=== PATIENT | female | born 1985 | race Two or more races ===

== ENCOUNTER 2022-04-25 15:57 | Emergency (ER) | payer MEDICAID, SELFPAY ==
[2022-04-25 16:01] VITALS: BP 130/74; PULSE 80; RESP 18; TEMP 36.8; O2SAT 99; BMI 33.0
--- NOTE | 2022-04-25 16:15 | USR_ITS ---
PROCEDURE INFORMATION: Exam: US Pelvis, Transvaginal Exam date and time: 04/25/2022 4:55 PM Age: 37 years old Clinical indication: Other: Vaginal bleeding; Patient HX: Patient has a positive test 6542.00. No iup visualized. ; Additional info: Approximately 6 weeks with bleeding TECHNIQUE: Imaging protocol: Real-time transvaginal pelvic ultrasound with image documentation. Transvaginal imaging was used for better evaluation of the endometrium, adnexa, and/or cervix. COMPARISON: No relevant prior studies available. FINDINGS: Uterus: See below. Right ovary/adnexa: Normal. No mass. Normal ovarian blood flow. Left ovary/adnexa: Normal. No mass. Normal ovarian blood flow. Gestation: Negative for intrauterine , patient remains at risk for ectopic , close clinical correlation, serial beta HCG levels and follow-up ultrasound as clinically indicated advised. Small amount of nonspecific fluid in the uterine cavity, largely in the lower uterine segment, an abnormal is also a consideration for this appearance. Intraperitoneal space: Trace nonspecific fluid in the pelvis. US/US transvaginal [id number] IMPRESSION: 1. Negative for intrauterine , patient remains at risk for ectopic , close clinical correlation, serial beta HCG levels and follow-up ultrasound as clinically indicated advised. 2. Small amount of nonspecific fluid in the uterine cavity, largely in the lower uterine segment, an abnormal is also a consideration for this appearance. 3. Trace nonspecific fluid in the pelvis.
--- NOTE | 2022-04-25 16:25 | W.ED.PREGNAN ---
Documented by User: [email or web address] Rushing 04/26/22 07:09 HPI - General: Chief complaint: Vaginal Bleeding Stated complaint: vaginal bleeding Time Seen by Provider: 04/25/22 16:11 History of Present Illness: Patient is a a G2, P1 8-week 37-year-old female who comes to the ED with vaginal bleeding. Last menstrual period was February 26, 2022 and according to last menstrual period she is 8 weeks . Last week patient had some light spotting and went and saw her OB provider and they did an ultrasound and showed a intrauterine measuring at about 5 weeks gestation. Over the past week patient's vaginal bleeding has been increasing. Bleeding is still on the light to moderate side and describes it as less bleeding than her normal period bleeding. Endorses having episodic cramping as well. Patient is unsure of Rh status. Denies any fever, chills, nausea/vomiting, bladder or bowel symptoms. Date of Last Menstrual Period: 02/26/22 Associated symptoms: Deny abdominal pain, dysuria, headache(s), nausea or vomiting Review of Systems Const: Denies: fever(s), chills or fatigue Eyes: Denies: change in vision or eye discomfort ENMT: Denies: throat pain, odynophagia, nasal discharge or nasal congestion Card: Denies: chest pain, palpitations, edema, swelling of feet/ankles, dyspnea on exertion or orthopnea Resp: Denies: dyspnea, productive cough or non-productive cough GI: Denies: abdominal pain, nausea, vomiting, diarrhea, constipation, GI cramping or hematochezia : Reports: vaginal bleeding and other (cramping); Denies: flank pain, dysuria or hematuria Musc: Denies: neck pain, back pain or extremity swelling Skin/Breast: Denies: rash or new lesions Neuro: Denies: headache(s), numbness in extremities or weakness in extremities PFSH ED PFSH: Medical History No pertinent family history Surgical History No pertinent past surgical history Female Reproductive History: Date of last menstrual period: 02/26/22 Physical Exam Const: COMMON NORMALS: patient oriented x3 and alert GENERAL APPEARANCE: cooperative and comfortable HENMT: COMMON NORMALS: normocephalic HEAD & SCALP: normocephalic MOUTH: Normal oral and palatal mucosa present THROAT: posterior oropharynx normal and uvula midline Neck/C-Spine: COMMON NORMALS: supple GENERAL: Yes normal visual inspection Resp: COMMON NORMALS: normal respiratory effort, No retractions, No use of accessory muscles and clear to auscultation bilaterally AUSCULTATION: clear to auscultation bilaterally Cardio: COMMON NORMALS: regular rate, regular rhythm, S1 normal heart sound present, S2 normal heart sound present, No gallops present (Cardio), No clicks present (Cardio), No murmurs present (Cardio) and Peripheral pulses 2+ throughout RATE: regular rate RHYTHM: regular rhythm HEART SOUNDS: S1 normal heart sound present and S2 normal heart sound present PERIPHERAL PULSES: Peripheral pulses 2+ throughout GI: COMMON NORMALS: Normal to inspection, nondistended, normoactive bowel sounds present, Soft to palpation, non-tender and no masses PALPATION: Yes Soft to palpation : COMMON NORMALS: Yes no CVA tenderness BLADDER/KIDNEY EXAM: Yes no CVA tenderness Back/Pelvis: COMMON NORMALS: no CVA tenderness Extremity: COMMON NORMALS: normal to inspection Neuro: COMMON NORMALS: patient oriented x3 SENSORIUM/ORIENTATION: Yes alert GAIT: Yes Normal gait present Skin: GENERAL SKIN EXAM: dry skin Course Vital Signs: Vital signs: Vital Signs Temperature 97.9 F 04/25/22 18:48 Pulse Rate 89 04/25/22 18:48 Respiratory Rate 15 04/25/22 18:48 Blood Pressure 132/72 04/25/22 18:48 Pulse Oximetry 96 04/25/22 18:48 Oxygen Delivery Me thod 04/25/22 16:01 MDM - OB/Uterine Contractions Medical Decision Making Patient comes in today for increased bleeding during first trimester . Patient was seen last week and it was noted that she had a intrauterine on ultrasound. 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 On exam abdomen soft nontender. Vital signs are normal. Differential diagnosis includes spontaneous miscarriage, threatened , UTI. Laboratory values noted blood in the urine, a low hemoglobin at 7.3, normal CMP. Ultrasound noted no intrauterine . hCG is 6000. Suspect loss of recommend repeat hCG in 3 days with follow-up with either primary care or PRO[employer] DIRECTOR [employer]. Patient reported understanding and agreed to plan. Lab Data I reviewed the patient's lab results. : 04/25/22 16:40 04/25/22 16:40 Radiology Impressions Transvaginal US 04/25/22 16:15 IMPRESSION: 1. Negative for intrauterine , patient remains at risk for ectopic , close clinical correlation, serial beta HCG levels and follow-up ultrasound as clinically indicated advised. 2. Small amount of nonspecific fluid in the uterine cavity, largely in the lower uterine segment, an abnormal is also a consideration for this appearance. 3. Trace nonspecific fluid in the pelvis. Laboratory Results WBC 7.5 10^3/uL (4.0-10.0) 04/25/22 16:40 RBC 4.33 10^6/uL (4.1-5.3) 04/25/22 16:40 Hgb 7.3 g/dL (11.5-15.3) L 04/25/22 16:40 Hct 28.7 % (37.0-47.0) L 04/25/22 16:40 MCV 66.3 fl (81-99) L 04/25/22 16:40 MCH 16.9 pg (28.0-34.0) L 04/25/22 16:40 MCHC 25.4 g/dL (30.0-36.0) L 04/25/22 16:40 RDW 24.2 % (12.1-15.1) H 04/25/22 16:40 Plt Count 244 10^3/cmm (130-400) 04/25/22 16:40 MPV 10.8 fL (7.4-10.4) H 04/25/22 16:40 Neut % (Auto) 78.4 % 04/25/22 16:40 Lymph % (Auto) 16.2 % 04/25/22 16:40 [place] % (Auto) 3.7 % 04/25/22 16:40 Eos % (Auto) 0.9 % 04/25/22 16:40 Baso % (Auto) 0.5 % 04/25/22 16:40 Neut # (Auto) 5.85 10^3/uL (1.8-7.7) 04/25/22 16:40 Lymph # (Auto) 1.2 10^3/uL (0.8-4.8) 04/25/22 16:40 [place] # (Auto) 0.3 10^3/uL (0.2-0.9) 04/25/22 16:40 Eos # (Auto) 0.1 10^3/uL (0.0-0.8) 04/25/22 16:40 Baso # (Auto) 0.0 10^3/uL (0.0-0.1) 04/25/22 16:40 Nucleated RBC % (auto) 0 % 04/25/22 16:40 Nucleated RBCs # 0.0 /100WBC 04/25/22 16:40 Sodium 140 mmol/L (136-145) 04/25/22 16:40 Potassium 3.6 mmol/L (3.5-5.1) 04/25/22 16:40 Chloride 106 mmol/L (98-107) 04/25/22 16:40 Carbon Dioxide 23 mmol/L (22-29) 04/25/22 16:40 Anion Gap 14.6 (5-19) 04/25/22 16:40 BUN 11 mg/dL (6-20) 04/25/22 16:40 Creatinine 0.6 mg/dL (0.5-0.9) 04/25/22 16:40 GFR Calculation 112.5 mL/min (90-130) 04/25/22 16:40 Glucose 99 mg/dL (65-115) 04/25/22 16:40 Calculated Osmolality 289 mOsm/kg (285-295) 04/25/22 16:40 Calcium 9.0 mg/dL (8.5-10.5) 04/25/22 16:40 Total Bilirubin 0.6 mg/dL (0.15-1.2) 04/25/22 16:40 AST 14 U/L (0-32) 04/25/22 16:40 ALT 12 U/L (0-33) 04/25/22 16:40 Alkaline Phosphatase 65 U/L (35-105) 04/25/22 16:40 Total Protein 7.8 g/dL (6.6-8.7) 04/25/22 16:40 Albumin 4.3 g/dL (3.5-5.2) 04/25/22 16:40 Globulin 3.5 g/dL (1.3-4.6) 04/25/22 16:40 Lipase 24 U/L (13-60) 04/25/22 16:40 Ser , Semi-Qnt 6542.00 mIU/mL 04/25/22 16:40 Urine Color Yellow (Yellow) 04/25/22 16:50 Urine Appearance Clear (CLEAR) 04/25/22 16:50 Urine pH 5 (5-7) 04/25/22 16:50 Ur Specific [place] 1.020 (1.005-1.030) 04/25/22 16:50 Urine Protein Neg (Negative) 04/25/22 16:50 Urine Glucose (UA) Norm (Normal) 04/25/22 16:50 Urine Ketones Negative (Negative) 04/25/22 16:50 Urine Blood 3+ (Negative) H 04/25/22 16:50 Urine Nitrate Negative (Negative) 04/25/22 16:50 Urine Bilirubin Neg (Negative) 04/25/22 16:50 Urine Urobilinogen Norm mg/dL (Negative) 04/25/22 16:50 Ur Leukocyte Esterase Negative (Negative) 04/25/22 16:50 Urine RBC 15-25 /hpf (0-2) H 04/25/22 16:50 Urine WBC 0-4 /hpf (0-5) H 04/25/22 16:50 Ur Squamous Epith Cells 0-4 /hpf (0-5) H 04/25/22 16:50 Amorphous Sediment Not Reportable 04/25/22 16:50 Urine Bacteria 2+ /hpf (NONE) H 04/25/22 16:50 Blood Type O Positive 04/25/22 16:46 Rho(D) Type Positive 04/25/22 16:46 Discharge Plan Discharge Patient Disposition: Home Clinical Impression: Threatened Condition: Stable Prescriptions: No Action ferrous sulfate 325 mg (65 mg iron) Tablet 325 mg PO BID 28 mg iron- 800 mcg Tablet 1 tab PO DAILY Discharge Orders: Discharge ED (Routine); Ordered 04/25/22 Ordered By: Hugh Abdi Discharge Diet: Usual diet Discharge Activity: Increase activity as tolerated Patient Instructions: Miscarriage (ED) Activity Restrictions/Additional Instructions: Home and rest. Drink plenty of fluids. Follow-up with primary care or [facility]ING in 2 to 3 days for repeat labs. Return to emergency department for fever greater than 100.4, bleeding greater than 1 pad an hour or new concerns. Sign Out Sign Out Data: Patient Sign Out occurred on 04/25/22 at 17:07. Patient's care was discussed, and care was transferred from to Hugh Abdi. Coding Level of Care Code ED [employer] Consultant for Chg Fwd Exam Comprehensive Documented by User: [email or web address] Fernandez 04/25/22 18:19 HPI - General: Chief complaint: Vaginal Bleeding Stated complaint: vaginal bleeding Time Seen by Provider: 04/25/22 16:11 PFSH ED PFSH: Medical History No pertinent family history Surgical History No pertinent past surgical history Course Vital Signs: Vital signs: Vital Signs Temperature 97.9 F 04/25/22 18:48 Pulse Rate 89 04/25/22 18:48 Respiratory Rate 15 04/25/22 18:48 Blood Pressure 132/72 04/25/22 18:48 Pulse Oximetry 96 04/25/22 18:48 Oxygen Delivery Me thod 04/25/22 16:01 MDM - OB/Uterine Contractions Medical Decision Making Patient comes in today for increased bleeding during first trimester . Patient was seen last week and it was noted that she had a intrauterine on ultrasound. 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 But still is present. On exam abdomen soft nontender. Vital signs are normal. Differential diagnosis includes spontaneous miscarriage, threatened , UTI. Laboratory values noted blood in the urine, a low hemoglobin at 7.3, normal CMP. Ultrasound noted no intrauterine . hCG is 6000. Suspect loss of recommend repeat hCG in 3 days with follow-up with either primary care or [facility] [employer]. Patient reported understanding and agreed to plan. Lab Data : 04/25/22 16:40 04/25/22 16:40 Radiology Impressions Transvaginal US 04/25/22 16:15
[2022-04-25 16:58] LABS: Basophils % 0.5 %; Eosinophils # 0.1 10^3/uL (0.0-0.8); Eosinophils % 0.9 %; Hematocrit 28.7 % (37.0-47.0); Hemoglobin 7.3 g/dL (11.5-15.3); Lymphocytes # 1.2 10^3/uL (0.8-4.8); Lymphocytes % 16.2 %; Mean Corpuscular HGB Conc 25.4 g/dL (30.0-36.0); Mean Corpuscular Hemoglobin 16.9 pg (28.0-34.0); Mean Corpuscular Volume 66.3 fl (81-99); Mean Platelet Volume 10.8 fL (7.4-10.4); Monocytes # 0.3 10^3/uL (0.2-0.9); Monocytes % 3.7 %; Neutrophils # 5.85 10^3/uL (1.8-7.7); Neutrophils % 78.4 %; Nucleated Red Blood Cells % 0 %; Platelet Count 244 10^3/cmm (130-400); Red Blood Count 4.33 10^6/uL (4.1-5.3); Red Cell Distribution Width 24.2 % (12.1-15.1); White Blood Count 7.5 10^3/uL (4.0-10.0)
[2022-04-25 17:39] LABS: Alanine Aminotransferase 12 U/L (0-33); Albumin Level 4.3 g/dL (3.5-5.2); Alkaline Phosphatase 65 U/L (35-105); Anion Gap 14.6 (5-19); Aspartate Amino Transferase 14 U/L (0-32); Blood Urea Nitrogen 11 mg/dL (6-20); Carbon Dioxide 23 mmol/L (22-29); Chloride 106 mmol/L (98-107); Globulin 3.5 g/dL (1.3-4.6); Glomerular Filtration Rate 112.5 mL/min (90-130); Glucose 99 mg/dL (65-115); Lipase 24 U/L (13-60); Osmolality Calculated 289 mOsm/kg (285-295); Potassium 3.6 mmol/L (3.5-5.1); Sodium 140 mmol/L (136-145); Total Bilirubin 0.6 mg/dL (0.15-1.2); Total Protein 7.8 g/dL (6.6-8.7)
[2022-04-25 17:40] LABS: Add Urine Microscopic? YES; Bilirubin Urine Neg (Negative); Blood Urine 3+ (Negative); Glucose Urine UA Norm (Normal); Ketones Urine Negative (Negative); Leukocyte Esterase Urine Negative (Negative); Nitrate Urine Negative (Negative); Protein Urine Neg (Negative); Urine Appearance Clear (CLEAR); Urine Color Yellow (Yellow); Urobilinogen Urine Norm (Negative); pH Urine 5 (5-7)
[2022-04-25 17:41] LABS: Add Urine Culture? Yes; Bacteria Urine 2+ /hpf; RBC Urine 15-25 /hpf (0-2); Squamous Epithelial Cell Urine 0-4 /hpf (0-5); WBC Urine 0-4 /hpf (0-5)
[2022-04-25 18:48] VITALS: BP 132/72; PULSE 89; RESP 15; TEMP 36.6; O2SAT 96
== END 2022-04-25 18:49 | disposition home or self-care (01) ==
PROVIDERS: Physician Assistant; Emergency Provider Nurse Practitioner Family
DX: O20.0 Threatened abortion (principal); Z3A.00 Weeks of gestation of pregnancy not specified
CPT/HCPCS: 76830; 80053; 81001; 83690; 84702; 85025; 86900; 87077; 87086; 87186; 99284

== ENCOUNTER 2022-12-29 17:26 | Outpatient (CLI) | payer BC, MEDICAID, SELFPAY | END 2022-12-29 17:27 | disposition home or self-care (01) | LOC: LAB 17:30 | PROVIDERS: PCP Family Medicine; Visit Provider Nurse Practitioner Family | DX: N93.9 Abnormal uterine and vaginal bleeding, unspecified (principal) | CPT/HCPCS: 84702 ==

== ENCOUNTER 2023-07-01 07:00 | Outpatient (CLI) | payer BC, MEDICAID, SELFPAY ==
[2023-07-01 07:21] VITALS: BP 146/85; PULSE 102
[2023-07-01 07:36] VITALS: BP 145/87; PULSE 85
[2023-07-01 07:52] VITALS: BP 138/86; PULSE 86
[2023-07-01 07:53] VITALS: RESP 16
[2023-07-01 08:26] VITALS: BMI 34.9
== END 2023-07-01 08:43 | disposition home or self-care (01) ==
LOC: OPOB 07:05 → OBGYN 07:05
PROVIDERS: PCP Family Medicine; Visit Provider Family Medicine
DX: O26.899 Other specified pregnancy related conditions, unspecified trimester (principal); Z3A.00 Weeks of gestation of pregnancy not specified; R10.9 Unspecified abdominal pain
CPT/HCPCS: 59025; 99211

== ENCOUNTER 2023-08-15 00:48 | Inpatient (IN) | payer MEDICAID, SELFPAY ==
[2023-08-14 23:05] VITALS: BP 166/88; PULSE 93
[2023-08-14 23:22] VITALS: BP 140/105; PULSE 91
[2023-08-14 23:43] VITALS: BP 134/81; PULSE 94
[2023-08-14 23:44] VITALS: PULSE 18; RESP 18
[2023-08-14 23:54] VITALS: BP 157/87; PULSE 98
[2023-08-15] VITALS (19 sets, daily range): BP systolic 96–177; BP diastolic 50–100; PULSE 81–109; RESP 16–18; TEMP 36.6; O2SAT 98–99
[2023-08-15] MEDS: lactated ringers 1,000 ML 999 ML IV (01:30)
--- NOTE | 2023-08-15 01:55 | PM.OBGYHP ---
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 She presented to the hospital in active labor. She was having contractions less than every 5 minutes. She has a history of a previous section and a child with macrosomia. This has been relatively unremarkable. She did pass her 1 hour glucose screen. Her blood type is O+. Her antibody screen was negative. Her RPR was nonreactive. Her hepatitis B antigen was negative. HIV was negative. Chlamydia and gonorrhea were negative. She is rubella immune. Hepatitis C antibody. She is group B strep negative. Upon arrival to hospital she was checked and was noted to be a centimeter dilated and 50% effaced. Her cervix is unchanged her last couple of hours to 75% effaced, but is still in the centimeter dilated. Review of Systems General: Reports: 10 or more systems reviewed and unremarkable except in HPI and below Const: Reports: fatigue; Denies: fever(s) Eyes: Denies: change in vision Card: Reports: swelling of feet/ankles (Mild); Denies: chest pain GI: Reports: heartburn Musc: Reports: back pain Psych: Reports: anxiety and depression Aram/Lymph: Denies: easy bruising Medications/Allergies Home Medications Medication Instructions Recorded Confirmed Last Taken Type ferrous sulfate 325 mg (65 mg 325 mg PO BID 04/25/22 04/25/22 04/24/22 History iron) tablet vit no.95-ferrous 1 tab PO DAILY 04/25/22 04/25/22 04/25/22 History fumarate 28 mg-folic acid 800 mcg tablet () escitalopram oxalate 5 mg tablet 5 mg PO DAILY 08/15/23 08/15/23 Unknown History Allergies Allergy/AdvReac Type Severity Reaction Status Date / Time No Known Allergies Allergy Unverified 04/25/22 16:21 PFSH DEPARTMENT STORE MANAGER PFSH: Medical History No pertinent family history Surgical History No pertinent past surgical history Vitals/I&O/Wt Last Vital Signs Pulse 98 08/15/23 00:48 BP 140/80 08/15/23 00:48 Physical Exam Const: COMMON NORMALS: patient oriented x3 and alert HENMT: COMMON NORMALS: moist oral mucous membranes HEAD & SCALP: normal to inspection Chest: COMMONS NORMALS: normal inspection of the chest Resp: COMMON NORMALS: clear to auscultation bilaterally AUSCULTATION: clear to auscultation bilaterally Cardio: COMMON NORMALS: regular rate and regular rhythm RATE: regular rate RHYTHM: regular rhythm GI: INSPECTION: Yes normal to inspection and Yes other (Gravid) Extremity: COMMON NORMALS: normal to inspection GENERAL: Yes edema (Trace) Neuro: COMMON NORMALS: patient oriented x3, moves all extremities and no sensory deficits noted SENSORIUM/ORIENTATION: Yes alert Psych: COMMON NORMALS: mental status grossly normal Skin: COMMON NORMALS: no rashes or lesions noted GENERAL SKIN EXAM: no rashes or lesions noted Results Labs OB ([facility]): Blood Type O Positive 04/25/22 Hct 28.7 % (37.0-47.0) L 04/25/22 Hgb 7.3 g/dL (11.5-15.3) L 04/25/22 Rho(D) Type Positive 04/25/22 Plt Count 244 10^3/cmm (130-400) 04/25/22 Ser , Semi-Qnt 5603.00 mIU/mL 12/29/22 Micro Urine Specimen 04/25/22 A&P Assessment and plan (1) 39 weeks gestation of : (2) History of low transverse section: We once again discussed the risk of bleeding, infection, and damage intra-abdominal organs. She and her had no further questions and wished to proceed. Her only speaks [place], and I shared some of the risks with him in [place]. Attestations Medical Necessity Statement*: Routine and post care anticipated. Coding Level of Care Code Acute Code for Chg Fwd Diagnoses 39 weeks gestation of Z3A.39 History of low transverse section Z98.891
--- NOTE | 2023-08-15 02:33 | ANES.PAUD2 ---
Documented by User: Yani Davis 08/15/23 02:35 Pre-Anesthetic Update Pre-Anesthetic Assessment: Date of Surgery/Procedure: 08/15/23 Preop Diagnosis: previous c/s Proposed Procedure: C/S Any changes to Pre-Anesthetic Assessment?: No Last Intake: Solid: 08/14/22 @2000 Liquid:08/14/22 @2100 Vitals: Pulse Rate 109 H 08/15/23 02:31 Respiratory Rate 18 08/14/23 23:44 Blood Pressure 170/97 08/15/23 02:31 Exam: Pre-Anes Outpt Exam: alert, oriented x 3, clear to auscultation bilaterally and regular rate & rhythm Cardiac Studies: No Data to Display Documented by User: Som Araujo 08/15/23 07:39 Pre-Anesthetic Update Pre-Anesthetic Assessment: Date of Surgery/Procedure: 08/15/23 Cardiac Studies: No Data to Display
[2023-08-15] MEDS: lactated ringers 1,000 ML 125 ML IV (02:40)
[2023-08-15 03:02] LABS: Hematocrit 32.5 % (36-47); Mean Corpuscular HGB Conc 29.2 g/dL (30-55); Mean Corpuscular Hemoglobin 19.7 pg (27-33); Mean Corpuscular Volume 67.3 fl (85-98); Mean Platelet Volume 10.2 fL (7.4-10.4); Platelet Count 270 10^3/cmm (157-399); Red Blood Count 4.83 10^6/uL (3.85-5.65); Red Cell Distribution Width 20.5 % (12.1-15.1); White Blood Count 10.83 10^3/uL (3.29-11.43)
[2023-08-15 03:18] LABS: Absolute Eosinophils 0.1 10^3/cmm (0.0-0.7); Absolute Neutrophil 8.8 10^3/cmm (1.4-6.5); Absolute Segmented Neutrophil 8.8 10/cmm (1.6-7.1); Eosinophils 1 %; Lymphocytes 12 %; Lymphocytes Absolute 1.3 10^3/cmm (1.2-3.4); Monocytes Absolute 0.6 10^3/cmm (0.1-0.6); Platelet Estimate Normal (Normal); Segmented Neutrophils 81 %; Total Cells Counted 100 (0-100)
[2023-08-15] MEDS: famotidine 20 mg/2 mL INJ IVP (03:40)
[2023-08-15] MEDS: ceFAZolin 2,000 MG in sodium chloride 0.9% (plus) 50 ML 100 MG IV (03:40)
[2023-08-15] MEDS: citric acid-sodium citrate 30 mL UDC PO (03:40)
[2023-08-15] MEDS: metoclopramide 5 mg/mL SDV 2 mL 10 MG IVP (03:41)
--- NOTE | 2023-08-15 05:19 | P.OP_ITS ---
Operative Report Date of procedure: August 15, 2023 Pre-op diagnosis: 1. 38-year-old female at 39 weeks estimated gestational age presenting in active labor 2. History of lower transverse section 3. Desires sterilization Post-op diagnosis: Status post low-transverse section and bilateral tubal ligation Procedure done: 1. Repeat low-transverse section 2. Bilateral tubal ligation Specimens removed/disposition: 1. Male infant with a weight of 7 pounds 8 ounces and Apgars of 10 and 10 2. Placenta with a three-vessel cord delivered intact 3. Bilateral fallopian tube segments with the right segment being tagged Pathology: Bilateral fallopian tube segments with the right segment being tagged Surgeon: Perfecto Garnica MD Estimated blood loss (mL): 1,000 Complications: None Procedure: The patient was brought back to the operating room where she was prepped and draped in usual sterile fashion. Anesthesia was found to be adequate. A lower transverse skin incision was then made with a #10 blade. I then dissected down to the underlying subcutaneous tissue until arriving at the prerectal fascia. The fascia was then nicked with the scalpel bilaterally. The fascial incisions were then carried laterally with Zayas scissors. Attention was then turned to the superior aspect of the incision which was grasped with kochers and tented up away from the underlying rectus abdominis muscles. The muscles were then dissected away from the fascia manually, and later with Zayas scissors. Attention was then turned to the inferior aspect of the incision, and the fascia was dissected away from the underlying muscle in similar fashion. The rectus abdominis muscles were then spread manually. The peritoneum was entered manually. Excellent visualization of the uterus was noted. A lower transverse uterine incision was then made with a #10 blade. Upon arriving at the intraut erine cavity, the uterine incision was then extended manually. The infant was noted to be in vertex position. The baby was delivered without difficulty. After delivery of the head, the mouth and nose were suctioned at the site of the incision. There was no meconium. There was a nuchal cord x 1. The baby was then completely delivered and placed on the abdomen. The cord was cut and clamped. The baby was then handed to the waiting nurse. The placenta was removed intact. The uterus was externalized. The intrauterine cavity was cleansed of any remaining debris. The uterine incision was reapproximated in 2 layers. The first layer was performed with 0 Vicryl in a running locked stitch. The second layer was an imbricating stitch also using 0 Vicryl. The uterus was replaced into the a bdomen. The peritoneum was then irrigated with warm saline. I reexamined the uterine incision and found it to be hemostatic. Attention was then turned to the right fallopian tube which was ligated cut and cauterized in a modified [place] fashion with 0 chromic. The left fallopian tube was also ligated cut and cauterized in similar fashion. The rectus abdominis muscles were then reapproximated using 0 Vicryl in a running stitch. The fascia was then reapproximated using 0 Vicryl in running stitch. The subcutaneous tissue was then reapproximated using 0 Vicryl in a running stitch. The skin was reapproximated using yoselyn. A sterile dressing was placed. All counts were correct x2. Both the mother and baby were in stable condition.
[2023-08-15] MEDS: ondansetron 2 mg/ML SDV 2 mL 4 MG IVP (07:12)
--- NOTE | 2023-08-15 07:39 | ANE.PACU2 ---
Inpatient post-anesthesia follow up: Airway intact: Yes Vital signs: Temperature 98 F Pulse Rate 82 Respiratory Rate 18 Blood Pressure 121/68 Pulse Oximetry 99 Oxygen Delivery Me thod Room Air Oxygen Flow Rate Fraction of Inspir ed Oxygen Hydration adequate: Yes Nausea and vomiting: No Pain level: 2 Mental status: Baseline
[2023-08-15] MEDS: promethazine 25 mg/mL SDV 1 mL IM (10:58)
[2023-08-15] MEDS: ketorolac 30 mg/mL INJ IVP ×2 (10:59→19:10)
[2023-08-15] MEDS: dextrose 5%-lactated ringers 1,000 ML 125 ML IV ×2 (12:58→19:10)
[2023-08-15 18:31] LABS: Hematocrit 24.9 % (36-47); Mean Corpuscular HGB Conc 29.3 g/dL (30-55); Mean Corpuscular Hemoglobin 19.9 pg (27-33); Mean Corpuscular Volume 67.8 fl (85-98); Mean Platelet Volume 10.8 fL (7.4-10.4); Platelet Count 246 10^3/cmm (157-399); Red Blood Count 3.67 10^6/uL (3.85-5.65); Red Cell Distribution Width 20.6 % (12.1-15.1); White Blood Count 12.79 10^3/uL (3.29-11.43)
[2023-08-15] MEDS: ferrous sulfate EC 325 mg Tablet PO (19:10)
[2023-08-15] MEDS: docusate sodium 100 mg Capsule PO (19:11)
[2023-08-16 04:53] VITALS: BP 119/61; PULSE 81
[2023-08-16 05:04] VITALS: RESP 16; TEMP 36.7
[2023-08-16] MEDS: ferrous sulfate EC 325 mg Tablet PO ×2 (08:53→17:49)
[2023-08-16] MEDS: ibuprofen 800 mg tablet PO ×2 (08:54→15:27)
[2023-08-16] MEDS: prenatal vitamin Capsule 1 CAP PO (08:54)
[2023-08-16] MEDS: docusate sodium 100 mg Capsule PO ×2 (08:54→17:49)
[2023-08-16 10:00] VITALS: RESP 16; TEMP 36.7
[2023-08-16 10:02] VITALS: BP 125/62; PULSE 82
[2023-08-16 15:28] VITALS: BP 126/59; PULSE 86
--- NOTE | 2023-08-16 17:06 | P.DS_ITS ---
Discharge Providers TELEVISION PROGRAM DIRECTOR Date of Admission: 08/15/23 00:48 Date of Discharge: 08/18/23 Attending Provider at Admission: Perfecto Garnica MD Attending Provider at Discharge: Perfecto Garnica MD Primary Care Provider: Perfecto Garnica MD Diagnoses at Discharge Discharge Diagnosis (1) 39 weeks gestation of : Status: Resolved (2) History of low transverse section: Status: Resolved Reason for Visit Reason for Visit: contractions Hospital Course Hospital Course The patient presented to the hospital in active labor. Initially she considered doing a . After discussing options and after she having more pain, she elected to proceed with a section. The was unremarkable. Her post operative course was also unremarkable. She breast-fed well. She voided. She stooled. She tolerated regular diet. There were no concerns. Her hemoglobin levels were noted, but she was able to ambulate without dizziness and showed no signs of hypovolemia. Information Peripartum Data: Infant Delivery Method: Physical Exam Narrative: She is in no acute distress Lungs are clear auscultation bilaterally Her heart has a regular rate and rhythm Her fundus is below the umbilicus and firm Her incision is clean, dry and intact Her extremities have trace edema Urinary Catheter Management: Sapp: Cath Placed During This Visit: yes, but has since been removed by the nurse Reason for Continuing Indwelling Catheter: Decision to DC Catheter Urinary Catheter Date of Insertion: 08/15/23 Urinary Catheter Time of Insertion: 04:10 Date Urinary Catheter Removed: 08/16/23 Time Urinary Catheter Discontinued: 00:53 Discharge Data Studies Completed and Pending Pending at discharge Category Date Time Status Pathology: Surgical [PTH] Stat Pth 08/15/23 05:21 Received Laboratory Results WBC 12.79 10^3/uL (3.29-11.43) H 08/15/23 17:36 RBC 3.67 10^6/uL (3.85-5.65) L 08/15/23 17:36 Hgb 7.30 g/dL (11.27-16.99) L 08/15/23 17:36 Hct 24.9 % (36-47) L 08/15/23 17:36 MCV 67.8 fl (85-98) L 08/15/23 17:36 MCH 19.9 pg (27-33) L 08/15/23 17:36 MCHC 29.3 g/dL (30-55) L 08/15/23 17:36 RDW 20.6 % (12.1-15.1) H 08/15/23 17:36 Plt Count 246 10^3/cmm (157-399) 08/15/23 17:36 MPV 10.8 fL (7.4-10.4) H 08/15/23 17:36 Total Counted 100 (0-100) 08/15/23 00:30 Atypical Lymphs % 0.0 % (0-5) 08/15/23 00:30 Absolute Neutrophils 8.8 10^3/cmm (1.4-6.5) H 08/15/23 00:30 Segmented Neutrophils 81 % 08/15/23 00:30 Abs Segm Neuts (Man) 8.8 10/cmm (1.6-7.1) H 08/15/23 00:30 Band Neutrophils 0.0 % 08/15/23 00:30 Abs Band Neuts (Man) 0.0 10^3/cmm (0.0-1.2) 08/15/23 00:30 Absolute Lymphocytes 1.3 10^3/cmm (1.2-3.4) 08/15/23 00:30 Lymphocytes (Manual) 12 % 08/15/23 00:30 Monocytes (Manual) 6.0 % 08/15/23 00:30 Absolute Monocytes 0.6 10^3/cmm (0.1-0.6) 08/15/23 00:30 Eosinophils (Manual) 1 % 08/15/23 00:30 Absolute Eosinophils 0.1 10^3/cmm (0.0-0.7) 08/15/23 00:30 Basophils (Manual) 0.0 % 08/15/23 00:30 Absolute Basophils 0.0 10^3/cmm (0.0-0.2) 08/15/23 00:30 Platelet Estimate Normal (Normal) 08/15/23 00:30 Blood Type O Positive 08/15/23 00:30 Rho(D) Type Rh positive 08/15/23 00:30 Antibody Screen Negative 08/15/23 00:30 Vitals Last Vital Signs Temp 98.1 F 08/16/23 10:00 Pulse 86 08/16/23 15:28 Resp 16 08/16/23 10:00 BP 126/59 08/16/23 15:28 Pulse Ox 98 08/15/23 20:47 O2 Del Method Room Air 08/15/23 20:47 Results Labs OB ([facility]): Blood Type O Positive 08/15/23 Antibody Screen Negative 08/15/23 Hct 24.9 % (36-47) L 08/15/23 Hgb 7.30 g/dL (11.27-16.99) L 08/15/23 Rho(D) Type Rh positive 08/15/23 Plt Count 246 10^3/cmm (157-399) 08/15/23 Ser , Semi-Qnt 5603.00 mIU/mL 12/29/22 Micro Urine Specimen 04/25/22 Discharge Plan Discharge Patient Disposition: Home Condition: Stable Prescriptions: New hydrocodone-acetaminophen 5-325 mg Tablet 1 - 2 tab PO Q4H PRN (Reason: Moderate To Severe Pain) Qty: 28 0RF docusate sodium 100 mg Capsule 100 mg PO BID PRN (Reason: Constipation) Qty: 30 0RF Continued ferrous sulfate 325 mg (65 mg iron) Tablet 325 mg PO BID PNV [id number] fumarate-FA [] 28 mg iron- 800 mcg Tablet 1 tab PO DAILY escitalopram oxalate 5 mg Tablet 5 mg PO DAILY Discharge Orders: Discharge Order (Routine); Ordered 08/16/23 Ordered By: Perfecto Garnica Referrals: Perfecto Garnica MD [Primary Care Provider] - 08/22/23 2:00 pm () Discharge Diet: Usual diet Discharge Activity: Limit activity as instructed Patient Instructions: Depression (DC), Bleeding (DC), Preeclampsia and Eclampsia After Delivery (GEN), Hemorrhage (DC), OB - Nahun/Pati, OB Discharge Report, OB Food/Drug Interaction Guide, OB Care at Home, Opioid Safety Discharge Attestations TELEVISION PROGRAM DIRECTOR Time Spent in Discharge Care*: less than 30 min Coding Level of Care Code Acute Code for Chg Fwd Diagnoses 39 weeks gestation of Z3A.39 History of low transverse section Z98.891
--- NOTE | 2023-08-16 17:44 | PC.NURSE ---
Prescriptions called to [facility] per patient's request.
[2023-08-16] MEDS: HYDROcodone-acetaminophen 5-325 mg Tablet PO (17:49)
[2023-08-16 18:13] VITALS: BP 126/59; PULSE 86; RESP 18; TEMP 36.8
== END 2023-08-16 18:10 | disposition home or self-care (01) | DRG 785 ==
LOC: OPOB 00:48 → OBGYN 00:48
PROVIDERS: Admitting Provider Family Medicine; PCP Family Medicine; Visit Provider Family Medicine
PROC: 10D00Z1 Extraction of Products of Conception, Low, Open Approach (ICD-10-PCS; CPT 59514; principal; 2023-08-15 03:50)
DX: O34.211 Maternal care for low transverse scar from previous cesarean delivery (principal); N85.8 Other specified noninflammatory disorders of uterus; Z3A.39 39 weeks gestation of pregnancy; Z37.0 Single live birth; Z30.2 Encounter for sterilization
CPT/HCPCS: 51702; 58611; 59025; 59409; 85007; 85027; 86850; 86900; 88302; 96372; 96374; 96376; 98960; 99211; J0690; J1885; J2274; J2371; J2405; J2550; J2765; J3010; J3490; J7120; J7121